=== PATIENT | female | born 1945 | race African-American/Black ===

== ENCOUNTER → 2016-05-21 | Outpatient (CLI) | payer MEDICARE, BC | END | disposition home or self-care (01) | LOC: CFH 08:35 | PROVIDERS: ATTEND Internal Medicine | DX: I08.1 Rheumatic disorders of both mitral and tricuspid valves (principal); I37.1 Nonrheumatic pulmonary valve insufficiency; I05.8 Other rheumatic mitral valve diseases; R60.9 Edema, unspecified; Z85.3 Personal history of malignant neoplasm of breast | CPT/HCPCS: 93306 ==